=== PATIENT | female | born 1980 | race Two or more races ===

== ENCOUNTER 2017-03-12 10:41 | Emergency (ER) | payer SELFPAY ==
[~2017-03-12] VITALS: Ht 170.2 cm; Wt 68.0 kg
[2017-03-12 11:08] VITALS: BP 132/84
== END 2017-03-12 12:05 | disposition home or self-care (01) ==
LOC: ER 10:43
DX: B34.9 Viral infection, unspecified (principal)
CPT/HCPCS: A4606; Z7610